=== PATIENT | male | born 1985 | race Caucasian/White ===

== ENCOUNTER 2021-10-01 14:04 | Emergency (ER) | payer BC ==
[~2021-10-01] VITALS: Ht 190.5 cm; Wt 106.6 kg
[2021-10-01 14:45] VITALS: BP_SYST 133
--- NOTE | 2021-10-01 18:10 | NUR ---
patient to ed at this time with left rib pain after playing basketball. xray ordered at this time
[2021-10-01] MEDS ORDERED: IBUP-1969 PO (18:18)
[2021-10-01] MEDS ORDERED: IBUPROFEN 600 MG TABLET PO ONE (19:15)
--- NOTE | 2021-10-01 19:15 | NUR ---
PT SEEN BY DR. STEVENS AT 1814 PER MD NOTE
--- NOTE | 2021-10-01 19:37 | NUR ---
Stressed the importance of f/u with pcp and to fill prescription for pain management. Pt verbalized understanding discharge instructions.
== END 2021-10-01 19:38 | disposition home or self-care (01) ==
LOC: SED 14:04
DX: S20.212A Contusion of left front wall of thorax, initial encounter (principal); W51.XXXA Accidental striking against or bumped into by another person, initial encounter; Y93.67 Activity, basketball; Y92.89 Other specified places as the place of occurrence of the external cause; Y99.8 Other external cause status
CPT/HCPCS: 71045; 71100; 99284